=== PATIENT | female | born 1985 | race Caucasian/White ===

== ENCOUNTER 2018-03-07 07:56 | Day surgery (SDC) | payer SELFPAY ==
[2018-03-07 08:46] LABS: Absolute Lymphocytes (CBC) 2.3 K/uL (0.7-4.9); Absolute Monocytes 0.4 K/uL (0.1-1.3); Absolute Neutrophil 4.3 K/uL (1.8-8.0); Basophils % 0.6 % (0-1.3); Eosinophils % 2.2 % (0-4.4); Hematocrit 40.1 % (36.0-45.0); MCH 29.8 pg (27.0-35.0); MCV 86.8 fL (80-100); MPV 7.5 fL (7.6-11.3); Monocytes % 5.1 % (3.3-12.3); RBC Red Blood Cell Count 4.62 M/uL (3.86-4.86)
[2018-03-07 08:53] LABS: Urine Blood 3+ (NEG); Urine Glucose NEGATIVE (NEG); Urine Protein NEGATIVE (NEG); Urine pH 7.5 (5.0-7.0)
[2018-03-07 09:10] LABS: BUN Blood Urea Nitrogen 11 mg/dL (7-18); Bicarbonate 28 mmol/L (21-32); Glucose Level 94 mg/dL (74-106); HCG, Quantitative 2290 mIU/mL (1-3); Potassium 3.6 mmol/L (3.5-5.1); Sodium Level 137 mmol/L (136-145)
--- NOTE | 2018-03-07 10:22 | ER ---
Nurse's Notes [facility] Name: Nicole London Age: 32 yrs Sex: Female : 1985 Arrival Date: 03/07/2018 Time: 07:58 Bed 5 Private MD: Joanie Montano Diagnosis: Incomplete spontaneous without complication Presentation: 03/07 08:02 Presenting complaint: Patient states: I have been spotting since Tuesday and last night la1 and today I have passed some large clots. Transition of care: patient was not received from another setting of care. Onset of symptoms was March 07, 2018. Risk Assessment: Do you want to hurt yourself or someone else? Patient reports no desire to harm self or others. Initial Sepsis Screen: Does the patient meet any 2 criteria? No. Patient's initial sepsis screen is negative. Does the patient have a suspected source of infection? No. Patient's initial sepsis screen is negative. Care prior to arrival: None. 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 - Social history:: Smoking status: Patient/guardian denies using tobacco. - Ebola Screening: : No symptoms or risks identified at this time. Screenin:33 Abuse screen: Denies threats or abuse. Denies injuries from another. Nutritional jl7 screening: No deficits noted. Tuberculosis screening: No symptoms or risk factors identified. Fall Risk IV access (20 points). Total Mohan Fall Scale indicates No Risk (0-24 pts). Assessment: 08:20 Obstetrical Assessment: General assessment: awake and alert, skin warm and dry, jl7 respirations even and unlabored. Pain: Denies pain. Neuro: Level of Consciousness is awake, alert, obeys commands. Cardiovascular: Patient's skin is warm and dry. Respiratory: Airway is patent Respiratory effort is even, unlabored, Respiratory pattern is regular, symmetrical. GI: No signs and/or symptoms were reported involving the gastrointestinal system. Patient currently denies diarrhea, nausea, vomiting. : Reports vaginal bleeding that is bright red, with clots, since Tuesday. EENT: No signs and/or symptoms were reported regarding the EENT system. Derm: Skin is pink, warm \T\ dry. Musculoskeletal: No signs and/or symptoms reported regarding the musculoskeletal system. 09:15 Reassessment: Patient and/or family updated on plan of care and expected duration. Pain jl7 level reassessed. Patient is alert, oriented x 3, equal unlabored respirations, skin warm/dry/pink. Had pt change in to gown for US. 10:15 Reassessment: Patient appears in no apparent distress at this time. Patient and/or jl7 family updated on plan of care and expected duration. Pain level reassessed. Patient is alert, oriented x 3, equal unlabored respirations, skin warm/dry/pink. 11:15 Reassessment: No changes from previously documented assessment. Patient and/or family jl7 updated on plan of care and expected duration. Pain level reassessed. Patient is alert, oriented x 3, equal unlabored respirations, skin warm/dry/pink. 12:00 Reassessment: Patient and/or family updated on plan of care and expected duration. Pain jl7 level reassessed. Patient is alert, oriented x 3, equal unlabored respirations, skin warm/dry/pink. Vital Signs: 08:03 BP 118 / 60; Pulse 77; Resp 16; Temp 98.6; Pulse Ox 98% on R/A; Weight 72.57 kg; Height la1 5 ft. 3 in. (160.02 cm); Pain 0/10; 09:00 BP 109 / 60; Pulse 75; Resp 16 S; Pulse Ox 98% on R/A; Pain 0/10; jl7 10:30 BP 110 / 62; Pulse 75; Resp 16 S; Pulse Ox 99% on R/A; Pain 0/10; jl7 12:15 BP 115 / 64; Pulse 74; Resp 16; Pulse Ox 100% on R/A; Pain 0/10; jl7 08:03 Body Mass Index 28.34 (72.57 kg, 160.02 cm) la1 ED Course: 07:58 Patient arrived in ED. mr 07:59 Joanie Montano MD is Private Physician. mr 08:02 Debi Prieto FNP-C is [facility]. kb 08:02 Alban Spangler MD is Attending Physician. kb 08:02 Triage completed. la1 08:04 Arm band placed on left wrist. la1 08:16 Manish Otero, RN is Primary Nurse. jl7 08:33 Patient has correct armband on for positive identification. Bed in low position. Call jl7 light in reach. Side rails up X 1. Pulse ox on. NIBP on. 08:33 No provider procedures requiring assistance completed. Inserted saline lock: 20 gauge jl7 in right antecubital area, using aseptic technique. Blood collected. 09:55 US Transvaginal Ob In Process Unspecified. EDMS 10:00 Assist provider with pelvic exam: Set up pelvic tray. Performed by Debi GAMBOA Patient tolerated well. 10:14 Ultrasound completed. Patient tolerated well. Patient moved back from ultrasound. lc3 10:22 Norma Orr MD is Hospitalizing Provider. kb 12:35 Patient admitted, IV remains in place. intact, No redness/swelling at site. jl7 Administered Medications: No medications were administered Point of Care Testing: Urine : 08:30 hCG Reading: Positive; Control Reading: Negative; jl7 Outcome: 10:22 Decision to Hospitalize by Provider. kb 12:35 Admitted to OR accompanied by nurse, family with patient, via stretcher, with chart. jl7 12:35 Condition: stable 12:35 Discharge instructions given to patient, Instructed on the need for admit, Demonstrated understanding of instructions. 12:36 Patient left the ED. jlBinh Signatures: Dispatcher [employer] EDMS Debi Prieto FNP-C FNP-Karma Aida HusainThomas, RN RN Ivet Salazar Jahala, RN RN marcelo
--- NOTE | 2018-03-07 10:23 | EDPHYS ---
Physician Documentation [facility] Name: Nicole London Age: 32 yrs Sex: Female : 1985 Arrival Date: 03/07/2018 Time: 07:58 Bed 5 Private MD: Joanie Montano ED Physician Alban Spangler HPI: 03/07 08:46 This 32 yrs old Female presents to ER via Ambulatory with complaints of kb Vaginal Bleeding, + Preg <12wks. 08:46 The patient presents to the emergency department with vaginal bleeding, described as kb spotting, with clots. The estimated gestational age is 11 weeks. course: care: private OB physician, Dr. Orr, Leakage of Fluid: none appreciated, Ultrasound: the patient had an ultrasound, which was normal. Previous pregnancies: in previous pregnancies patient has had. Associated signs and symptoms: Pertinent positives: vaginal bleeding. The patient has not experienced similar symptoms in the past. The patient has been recently seen by a physician:. Pt reports spotting since Tuesday and passing clot this morning. Was told that the spotting was normal by OB, but came in because of the clot she passed. Reports last US was 3 weeks ago and showed a "pocket of blood behind the placenta.". 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 - Social history:: Smoking status: Patient/guardian denies using tobacco. - Ebola Screening: : No symptoms or risks identified at this time. ROS: 08:46 Constitutional: Negative for fever, chills, and weight loss, Cardiovascular: Negative kb for chest pain, palpitations, and edema, Respiratory: Negative for shortness of breath, cough, wheezing, and pleuritic chest pain, Abdomen/GI: Negative for abdominal pain, nausea, vomiting, diarrhea, and constipation, MS/Extremity: Negative for injury and deformity, Skin: Negative for injury, rash, and discoloration, Neuro: Negative for headache, weakness, numbness, tingling, and seizure. 08:46 : Positive for vaginal bleeding. Exam: 08:46 Constitutional: This is a well developed, well nourished patient who is awake, alert, kb and in no acute distress. Head/Face: Normocephalic, atraumatic. Chest/axilla: Normal chest wall appearance and motion. Nontender with no deformity. No lesions are appreciated. Cardiovascular: Regular rate and rhythm with a normal S1 and S2. No gallops, murmurs, or rubs. Normal PMI, no JVD. No pulse deficits. Respiratory: Lungs have equal breath sounds bilaterally, clear to auscultation and percussion. No rales, rhonchi or wheezes noted. No increased work of breathing, no retractions or nasal flaring. Abdomen/GI: Soft, non-tender, with normal bowel sounds. No distension or tympany. No guarding or rebound. No evidence of tenderness throughout. Skin: Warm, dry with normal turgor. Normal color with no rashes, no lesions, and no evidence of cellulitis. MS/ Extremity: Pulses equal, no cyanosis. Neurovascular intact. Full, normal range of motion. Neuro: Awake and alert, GCS 15, oriented to person, place, time, and situation. Cranial nerves II-XII grossly intact. Motor strength 5/5 in all extremities. Sensory grossly intact. Cerebellar exam normal. Normal gait. 10:06 : Pelvic Exam: External exam: is normal, Speculum exam: mild bleeding, no cervicitis, kb os that is closed, no tissue in cervix is seen, no tissue in vagina is seen. Vital Signs: 08:03 BP 118 / 60; Pulse 77; Resp 16; Temp 98.6; Pulse Ox 98% on R/A; Weight 72.57 kg; Height la1 5 ft. 3 in. (160.02 cm); Pain 0/10; 09:00 BP 109 / 60; Pulse 75; Resp 16 S; Pulse Ox 98% on R/A; Pain 0/10; jl7 10:30 BP 110 / 62; Pulse 75; Resp 16 S; Pulse Ox 99% on R/A; Pain 0/10; jl7 12:15 BP 115 / 64; Pulse 74; Resp 16; Pulse Ox 100% on R/A; Pain 0/10; jl7 08:03 Body Mass Index 28.34 (72.57 kg, 160.02 cm) la1 MDM: 08:05 Patient medically screened. kb 08:54 Data reviewed: vital signs, nurses notes. Data interpreted: Pulse oximetry: on room air kb is 98 %. Interpretation: normal. 10:10 Physician consultation: Norma Orr MD was called at 10:11, Kirby will call back shortly.kb 10:21 Counseling: I had a detailed discussion with the patient and/or guardian regarding: the kb historical points, exam findings, and any diagnostic results supporting the discharge/admit diagnosis, lab results, radiology results, the need for further work-up and treatment in the hospital. Physician consultation: Norma Orr MD was contacted at 10:21, regarding patient's condition, and will see patient in ED, shortly, will take pt for D\\T\\C from ER. 03/07 08:05 Order name: Quantitative Hcg; Complete Time: 09:11 kb 03/07 08:05 Order name: Abo/rh Typing; Complete Time: 09:23 kb 03/07 08:05 Order name: Basic Metabolic Panel; Complete Time: 09:11 kb 03/07 08:05 Order name: CBC with Diff; Complete Time: 08:55 kb 03/07 08:37 Order name: Urine Dipstick--Ancillary (enter results); Complete Time: 08:55 bd 03/07 08:37 Order name: Urine --Ancillary (enter results); Complete Time: 08:55 bd 03/07 08:05 Order name: Urine Test (obtain specimen); Complete Time: 08:30 kb 03/07 08:05 Order name: IV Saline Lock; Complete Time: 08:30 kb 03/07 08:05 Order name: Labs collected and sent; Complete Time: 08:30 kb 03/07 08:05 Order name: NPO; Complete Time: 08:30 kb 03/07 08:05 Order name: Urine Dipstick-Ancillary (obtain specimen); Complete Time: 08:30 kb 03/07 09:12 Order name: US Transvaginal Ob; Complete Time: 10:25 kb 03/07 11:05 Order name: Type And Screen jl7 03/07 11:56 Order name: Type and Screen; Complete Time: 11:59 EDMS 03/07 09:57 Order name: Pelvic Exam Setup; Complete Time: 10:30 kb Administered Medications: No medications were administered Point of Care Testing: Urine : 08:30 hCG Reading: Positive; Control Reading: Negative; jl7 Disposition: 18:40 Co-signature as Attending Physician, Alban Spangler MD available for consultation at ps1 all times. Disposition: 03/07/18 10:22 Hospitalization ordered by Norma Orr for Observation. Preliminary diagnosis is Incomplete spontaneous without complication. - Bed requested for Operating Room. - Status is Observation. jl7 - Condition is Stable. - Problem is new. - Symptoms are unchanged. UTI on Admission? No Signatures: Dispatcher [employer] EDMS Debi Prieto, MANAGEMENT INTERN-C MANAGEMENT INTERN-CkThomas Johnson RN RN la1 Manish Otero RN RN jl7 Alban Spangler MD MD ps1 Corrections: (The following items were deleted from the chart) 12:36 10:22 Hospitalization Ordered by Norma Orr MD for Observation. Preliminary diagnosis jl7 is Incomplete spontaneous without complication. Bed requested for Operating Room. Status is Observation. Condition is Stable. Problem is new. Symptoms are unchanged. UTI on Admission? No. kb
--- NOTE | 2018-03-07 10:24 | RAD REPORT ---
EXAM DESCRIPTION: US - Transvaginal OB - 03/07/2018 9:55 am CLINICAL HISTORY: VAGINAL BLEEDING COMPARISON: OB Complete dated 09/07/2016 FINDINGS: A single gestational sac is seen within the uterus. The shape of the sac is within normal limits for gestational age. Within the sac is a single pole with crown-rump length of 2.9 cm, c orrelating to estimated gestational age of 9 weeks 5 days. Despite prolonged sonographic assessment, cardiac activity cannot be demonstrated. The placenta is not yet developed due to early gestational age. The maternal adnexa and ovaries are within normal limits. Normal Doppler blood flow was demonstrated to both ovaries. IMPRESSION: The findings are most compatible with demise.
[2018-03-07] MEDS ORDERED: FENTANYL CITR 100 MCG/2 ML ONE (12:59)
[2018-03-07] MEDS: Ringers Lactate 1,000 ML IV ONE ×2 (13:00→13:10)
[2018-03-07] MEDS ORDERED: PROPOFOL 200 MG/20 ML VIAL IV ONE (13:01)
[2018-03-07] MEDS ORDERED: LIDOCAINE 2% MPF 5 ML VIAL ONE (13:02)
[2018-03-07] MEDS ORDERED: MIDAZOLAM HCL 2 MG/2 ML INJ ONE (13:02)
[2018-03-07] MEDS ORDERED: ONDANSETRON HCL 40 MG/20 ML VIAL ONE (13:03)
[2018-03-07] MEDS ORDERED: METHYLERGONOVINE 0.2MG/ML AMP IM ONE (13:38)
[2018-03-07] MEDS ORDERED: KETOROLAC 30 MG/ML INJ IV PRN (13:40)
[2018-03-07] MEDS ORDERED: ONDANSETRON 4 MG (ODT) TAB PO PRN (13:40)
[2018-03-07] MEDS ORDERED: IBUPROFEN 400 MG TAB PO PRN (13:40)
[2018-03-07 13:54] VITALS: O2SAT 100
[2018-03-07 16:51] VITALS: BP 116/61; TEMP 98.9
--- NOTE | 2018-03-07 22:35 | P.OP ---
Sight Mounter: NONE,NONE Preoperative diagnosis: incomplete Postoperative diagnosis: same Primary procedure: Dilation and curettage with suction Secondary procedure: none Anesthesia: LMA Estimated blood loss: minimal Specimen: products of conception Operative Technique: After consents were signed, the patient was taken to the OR where general anesthesia was obtained without difficulty. The patient was placed in stirrups and prepped and draped in the normal sterile fashion in dorsal lithotomy position. A time-out was performed for patient safety. After the bladder was drained, a bivalve speculum was used to visualize the cervix. The cervix was then grasped at the anterior lip with a single-tooth tenaculum. The uterus was then gently sounded to 8 cm. The cervix was then gently and progressively dilated to #14 Hanks dilator. A #8 flexible suction curette was then inserted into the uterine cavity and attached to the suction tubing. The suction device was then activated and the curette turned to clear the uterus of products of conception. A sharp curettage of the uterine cavity was then performed until a gritty texture was felt on all the surfaces. The specimen was collected and sent to pathology. The instruments were then removed from the vagina, including the tenaculum. Ring forceps was briefly placed on the anterior lip to achieve hemostasis at the tenaculum site. The ring forceps was then removed along with the speculum. The patient tolerated the procedure well. Needle, lap, and instrument counts were correct x2. The patient was taken to the recovery room in good condition. Transferred to: Recovery Room Condition: Good
--- NOTE | 2018-03-08 00:18 | HP ---
Date of Admission: 03/07/2018 History Of Present Illness: Nicole is a 32-year-old, 4, para 2-0-1-2, at 11 weeks gestation, w ho presented to the Emergency Department with an incomplete . The patient has been bleeding, spotting intermittently for the last week, and today her bleeding became more significant. She pres ented to the Emergency Department. Upon evaluation by the Emergency Department, she had an ultrasoun d performed, and the ultrasound finding revealed intrauterine with no heart tones. T he patient previously had an ultrasound in the office which had heart tones present. The patient is also having some cramping pain. Denies shortness of breath, visual changes. -No other issues. Past Medical History: Recurrent urinary tract infections, anxiety, depression, and adult acne. Past Surgical History: Includes wisdom tooth extraction. Ob History: Includes 2 prior vaginal births and 1 miscarriage. Social History: No tobacco, alcohol, or drug use. She is with the father of her children. Crab Picker History: Normal. Physical Examination: Vital Signs: On admission, blood pressure of 115/64, pulse is 74, respirations 16, O2 sats 100%. General: The patient resting comfortably in bed. Head and Neck: Normocephalic, atraumatic. Neck is supple. Heart: Regular rate and rhythm. Respiratory: Symmetric nonlabored breathing. Abdomen: Soft, nontender, nondistended. Uterus is firm, approximately 11-week sized. Bilateral Lower Extremities: No clubbing, cyanosis, or edema. Laboratory Findings: White blood cell count 7.1, hemoglobin 13.7, hematocrit 40.1, platelet count 37 0. HCG levels 2290. Assessment: Nicole London is a 32-year-old, 4, para 2-0-1-2, at 11 weeks gestation with incomp lete . Plan: Plan is to perform a D and C and suction evacuation, routine postoperative care. ROSALIO Voice ID: [id number]
== END 2018-03-07 15:35 | disposition home or self-care (01) ==
LOC: ER 07:56 → ERHOLD 10:23 → UNDOADMOB 10:23 → OR 12:31
PROVIDERS: ATTEND Student in an Organized Health Care Education/Training Program
PROC: 10D17ZZ Extraction of Products of Conception, Retained, Via Natural or Artificial Opening (ICD-10-PCS; principal; 2018-03-07 11:45)
DX: O03.4 Incomplete spontaneous abortion without complication (principal)
CPT/HCPCS: 36415; 76817; 80048; 81003; 81025; 84702; 85025; 86850; 86900; 86901; 88305; 99285; J2210; J2250; J2405; J2704; J3010

== ENCOUNTER 2019-01-03 05:59 | Inpatient (IN) | payer SELFPAY ==
--- OUTSIDE RECORDS SUMMARY | 2019-01-03 06:02 | XMS REPORT ---
:1985 Author Organization [employer] Care Team Providers Name Role Phone Cirilo Orr Provider Role Unavailable Allergies No Known Allergies Problems Problem Type Condition Code Onset Dates Condition Status Problem Encounter for supervision of other Z34.82 Active normal in second trimester Problem Adult acne L70.9 Active Problem Seasonal allergies J30.2 Active Medications No Known Medications Results No Known Results Summary Purpose [employer] Submission
--- OUTSIDE RECORDS SUMMARY | 2019-01-03 06:02 | XMS REPORT ---
:1985 Author Organization [employer] Care Team Providers Name Role Phone Cirilo Orr Provider Role Unavailable Allergies No Known Allergies Problems Problem Type Condition Code Onset Dates Condition Status Problem Encounter for supervision of other Z34.82 Active normal in second trimester Problem Adult acne L70.9 Active Problem Seasonal allergies J30.2 Active Assessment Adult acne L70.9 Active Assessment Encounter for supervision of other Z34.82 Active normal in second trimester Medications Medication Code Code Instructions Start End Status Dosage System Date Date One Daily ND 55741993817 - Orally Active as directed Complete Zyrte Allergy ND 14387297343 10 MG Orally Active 1 tablet Once a day Results No Known Results Summary Purpose [employer] Submission
--- OUTSIDE RECORDS SUMMARY | 2019-01-03 06:02 | XMS REPORT ---
:1985 Author Organization [employer] Care Team Providers Name Role Phone Montano, Joanie Provider Role Unavailable Allergies No Known Allergies Problems Problem Type Condition Code Onset Dates Condition Status Problem Encounter for supervision of other Z34.82 Active normal in second trimester Problem Adult acne L70.9 Active Problem Seasonal allergies J30.2 Active Medications No Known Medications Results No Known Results Summary Purpose [employer] Submission
--- OUTSIDE RECORDS SUMMARY | 2019-01-03 06:03 | XMS REPORT ---
:1985 Author Organization [employer] Care Team Providers Name Role Phone Cirilo Orr Provider Role Unavailable Allergies No Known Allergies Problems Problem Type Condition Code Onset Dates Condition Status Problem Seasonal allergies J30.2 Active Problem Encounter for supervision of other Z34.82 Active normal in second trimester Problem Encounter for supervision of other Z34.83 Active normal in third trimester Problem Adult acne L70.9 Active Medications No Known Medications Results No Known Results Summary Purpose [employer] Submission
--- OUTSIDE RECORDS SUMMARY | 2019-01-03 06:03 | XMS REPORT ---
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 (GDM) in third trimester Problem Seasonal allergies J30.2 Active Problem Encounter for supervision of other Z34.82 Active normal in second trimester Problem Encounter for supervision of other Z34.83 Active normal in third trimester Problem Diet controlled gestational 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
--- OUTSIDE RECORDS SUMMARY | 2019-01-03 06:03 | XMS REPORT ---
[...] other Z34.83 Active normal in third trimester Assessment Encounter for supervision of other Z34.83 Active normal , third trimester Problem Adult acne L70.9 Active Medications No Known Medications Results No Known Results Summary Purpose [employer] Submission
--- OUTSIDE RECORDS SUMMARY | 2019-01-03 06:03 | XMS REPORT ---
:1985 Author Organization eClinicalWorks Care Team Providers Name Role Phone Montano, Joanie Provider Role Unavailable Allergies, Adverse Reactions, Alerts Substance Reaction Event Type Hydrocodone-Ibuprofen Info Not Available Drug Allergy Darvocet A500 Info Not Available Drug Allergy Benzyl Alcohol Info Not Available Drug Allergy benzyl peroxide Info Not Available Non Drug Allergy Problems Problem Type Condition Code Onset Dates Condition Status Assessment Seasonal allergies J30.2 Active Problem Encounter for supervision of other Z34.82 Active normal in second trimester Problem Adult acne L70.9 Active Problem Seasonal allergies J30.2 Active Assessment Dermatitis L30.9 Active Assessment Excoriated acne L70.5 Active Assessment Allergic reaction, initial T78.40XA Active encounter Medications Medication Code Code Instructions Start End Status Dosage System Date Date Zyrtec Allergy [facility] 01792468110 10 MG Orally Active 1 tablet Once a day One Daily [facility] 16224171806 - Orally Active as directed Complete Results Name Result Date Reference Range Unit Abnormality Flag Allergens w/Total IgE, Area 10 ----O106-DbA Pigweed, <0.10 19114599 Class 0 kU/L Common ----Y324-XqG Aspergillus <0.10 53640800 Class 0 kU/L fumigatus ----Q246-ZiY Rough <0.10 [id number] Class 0 kU/L Marshelder ----C329-WqH <0.10 32565930 Class 0 kU/L Cladosporium herbarum ----W764-UrU Sheep <0.10 04299186 Class 0 kU/L Cyril ----T550-XsX Nettle <0.10 [id number] Class 0 kU/L ----N576-AaI Mouse Urine <0.10 [id number] Class 0 kU/L ----C012-SvZ Kristopher, White <0.10 [id number] Class 0 kU/L ----M151-WcB D farinae <0.10 [id number] Class 0 kU/L ----A836-OxP Altmar <0.10 [id number] Class 0 kU/L ----Q447-UbB Cat Dander <0.10 [id number] Class 0 kU/L ----D472-SfO Elm, <0.10 [id number] Class 0 kU/L Bangladeshi ----Q001-MbH Dog Dander <0.10 [id number] Class 0 kU/L ----O608-PfO Gladwin, White <0.10 [id number] Class 0 kU/L ----G317-RpW Bermuda <0.10 [id number] Class 0 kU/L Grass ----S147-IoU Marion, <0.10 [id number] Class 0 kU/L Mountain ----N989-YhE Brent <0.10 41917840 Class 0 kU/L Grass ----G320-IdB Pecan, <0.10 [id number] Class 0 kU/L G[place]co ----J055-DeS Common <0.10 [id number] Class 0 kU/L Silver Birch ----G499-TmM Cockroach, <0.10 19409699 Class 0 kU/L Portuguese ----F947-LnK White <0.10 82779206 Class 0 kU/L [place]n ----G169-FgA Maple/Box <0.10 [id number] Class 0 kU/L Elder ----Immunoglobulin E, 16 20180719 6-495 IU/mL Total ----B324-KzS Penicillium <0.10 04542537 Class 0 kU/L chrysogen ----Q695-JrD Ragweed, <0.10 [id number] Class 0 kU/L Short ----C285-NyS D <0.10 54361460 Class 0 kU/L pteronyssinus ----H628-DtX Alternaria <0.10 [id number] Class 0 kU/L alternata Comp. Metabolic Panel (14) (CMP) ----A/G Ratio 1.6 20180719 1.2-2.2 ----Globulin, Total 2.7 20180719 1.5-4.5 g/dL ----Alkaline Phosphatase 80 20180719 39-117 IU/L ----Bilirubin, Total <0.2 53312144 0.0-1.2 mg/dL ----Chloride 97 20180719 96-106 mmol/L ----ALT (SGPT) 10 20180719 0-32 IU/L ----Potassium 4.5 52683482 3.5-5.2 mmol/L ----AST (SGOT) 11 20180719 0-40 IU/L ----Sodium 137 33848340 134-144 mmol/L ----BUN/Creatinine Ratio 20 03539936 9-23 ----eGFR If Africn Am 145 53840641 >59 mL/min/1.73 ----Calcium 10.2 97724373 8.7-10.2 mg/dL ----Carbon Dioxide, 23 20180719 20-29 mmol/L Total ----Albumin 4.3 53317877 3.5-5.5 g/dL ----Protein, Total 7.0 18519982 6.0-8.5 g/dL ----Glucose 84 84669453 65-99 mg/dL ----BUN 11 20180719 6-20 mg/dL ----Creatinine 0.55 73568621 0.57-1.00 mg/dL L ----eGFR If NonAfricn Am 125 05390166 >59 mL/min/1.73 CBC With Differential/Platelet ----MCHC 33.9 91626968 31.5-35.7 g/dL ----MCH 29.1 15881737 26.6-33.0 pg ----Platelets 373 24811566 150-379 x10E3/uL ----RDW 13.4 58095149 12.3-15.4 % ----Immature 0 44264227 Not Estab. % Granulocytes ----Immature Grans (Abs) 0.0 98709971 0.0-0.1 x10E3/uL ----Lymphs 25 97926530 Not Estab. % ----Monocytes 5 33744844 Not Estab. % ----Neutrophils 69 15518852 Not Estab. % ----Neutrophils 6.1 13526466 1.4-7.0 x10E3/uL (Absolute) ----Hematocrit 38.1 72544153 34.0-46.6 % ----Lymphs (Absolute) 2.2 20180719 0.7-3.1 x10E3/uL ----MCV 86 54973510 79-97 fL ----Eos 1 20180719 Not Estab. % ----RBC 4.44 98389837 3.77-5.28 x10E6/uL ----Basos 0 20180719 Not Estab. % ----Hemoglobin 12.9 20180719 11.1-15.9 g/dL ----Baso (Absolute) 0.0 77649907 0.0-0.2 x10E3/uL ----WBC 8.9 36622582 3.4-10.8 x10E3/uL ----Monocytes(Absolute) 0.5 53647661 0.1-0.9 x10E3/uL ----Eos (Absolute) 0.1 67126481 0.0-0.4 x10E3/uL Summary Purpose eClinicalWorks Submission
--- OUTSIDE RECORDS SUMMARY | 2019-01-03 06:03 | XMS REPORT ---
[...] Status Dosage System Date Date Zyrtec Allergy [facility] 57871473560 10 MG Orally Active 1 tablet Once a day One Daily [facility] 97288195031 - Orally Active as directed Complete Results No Known Results Summary Purpose eClinicalWorks Submission
--- OUTSIDE RECORDS SUMMARY | 2019-01-03 06:03 | XMS REPORT ---
:1985 Author Organization eClinicalWorks Care Team Providers Name Role Phone Cirilo Orr Provider Role Unavailable Allergies No Known Allergies Problems Problem Type Condition Code Onset Dates Condition Status Assessment Encounter for supervision of other Z34.83 Active normal in third trimester Problem Seasonal allergies J30.2 [...] Status Dosage System Date Date One Daily [facility] 58839551519 - Orally Active as directed Complete Zyrtec Allergy [facility] 61207143764 10 MG Orally Active 1 tablet Once a day Results No Known Results Summary Purpose eClinicalWorks Submission
--- OUTSIDE RECORDS SUMMARY | 2019-01-03 06:03 | XMS REPORT ---
:1985 Author Organization eClinicalWorks Care Team Providers Name Role Phone Cirilo Orr Provider Role Unavailable Allergies No Known Allergies Problems Problem Type Condition Code Onset Dates Condition Status Problem Encounter for supervision of other Z34.82 Active normal in second trimester Problem Adult acne L70.9 Active Problem Seasonal allergies J30.2 Active Assessment Encounter for supervision of other Z34.82 Active normal in second trimester Medications Medication Code Code Instructions Start End Status Dosage System Date Date One Daily [facility] 18319541092 - Orally Active as directed Complete Zyrtec Allergy [facility] 48972873391 10 MG Orally Active 1 tablet Once a day Results No Known Results Summary Purpose eClinicalWorks Submission
--- OUTSIDE RECORDS SUMMARY | 2019-01-03 06:03 | XMS REPORT ---
[...] Status Dosage System Date Date One Daily [facility] 68012470294 - Orally Active as directed Complete Zyrtec Allergy [facility] 48337384860 10 MG Orally Active 1 tablet Once a day Results No Known Results Summary Purpose eClinicalWorks Submission
[2019-01-03] MEDS ORDERED: Ringers Lactate 1,000 ML IV PRN (07:34)
[2019-01-03] MEDS ORDERED: Ringers Lactate 1,000 ML IV SCH (08:00)
[2019-01-03] MEDS ORDERED: PENICILLIN G POT 5 MU/100 ML VIAL IV ONE (08:00)
[2019-01-03] MEDS ORDERED: PROMETHAZINE 25 MG/ML VIAL IM PRN (08:05)
[2019-01-03] MEDS ORDERED: METHYLERGONOVINE 0.2MG/ML AMP IM PRN (08:05)
[2019-01-03] MEDS ORDERED: CARBOPROST TROME 250 MCG/ML IM PRN (08:05)
[2019-01-03] MEDS ORDERED: BUTORPHANOL 1 MG/ML INJ IV PRN (08:05)
[2019-01-03] MEDS ORDERED: FENTANYL/BUPIVACAINE/NS/PF 200 MCG/100 ML BAG EP PRN (08:11)
[2019-01-03] MEDS ORDERED: FENTANYL CITR 100 MCG/2 ML IV ONE (08:12)
[2019-01-03] MEDS ORDERED: BUPIVACAINE 0.25% PF 30 ML VIAL IV ONE (08:13)
[2019-01-03 08:38] LABS: Absolute Lymphocytes (CBC) 2.2 K/uL (0.7-4.9); Basophils % 0.3 % (0-1.3); Hematocrit 33.9 % (36.0-45.0); Lymphocytes % 20.1 % (15.3-44.8); MPV 8.2 fL (7.6-11.3)
[2019-01-03] MEDS ORDERED: OXYTOCIN/LR 20 UNIT/1,000 ML BAG IV SCH ×2 (09:00→13:00)
[2019-01-03] MEDS ORDERED: PENICILLIN 2.5 MU in NA CHLORIDE 0.9% 100 ML IV SCH (12:00)
--- NOTE | 2019-01-03 12:48 | PREOPHP ---
Date of Admission: 01/03/2019 This is a 33-year-old female, 5, para 2, 37 weeks 5 days. Rh positive. Immune to Rubella. Negative beta strep screen. Patient has numerous allergies. She has had no complications. This mor gildardo came in active labor. Went from 2-4 cm, within an hour or so of observation. She is quite comf ortable at this time. Probably will be requesting epidural. She has had 5 million units of penicill in because of the beta strep positive status. We will await another hour. Then examine her. If she has made no progress, start light Pitocin. Other factors such as family history is negative. She h as several allergies, which are listed on the front of the chart. Vital signs are all stable. She l ooks alert, basically healthy female in early labor. KYLEE/CHEIKH Voice ID: [id number]
[2019-01-03] MEDS ORDERED: ACETAMINOPHEN 500 MG TAB PO PRN (12:53)
[2019-01-03] MEDS ORDERED: DIPHENHYDRAMINE 25 MG TAB/CAP PO PRN (12:53)
[2019-01-03] MEDS ORDERED: DOCUSATE NA/SENNA CONC 1 TAB PO PRN (12:53)
[2019-01-03] MEDS ORDERED: BISACODYL 10 MG RECTAL SUPP RECT PRN (12:53)
[2019-01-03] MEDS ORDERED: Oxycodone HCl/Acetaminophen 1 TAB TAB PO PRN ×2 (12:53)
--- NOTE | 2019-01-03 13:11 | PN ---
Patient is now about 7 cm, 80% to 90% effaced, very soft, -1 station, rupture of membranes, clear flu id. FHTs normal, reactive. She has an epidural which is very comfortable only since pressure with c ontractions. We will start light Pitocin augmentation. She has had her first dose of penicillin sev eral hours ago. Next dose is coming soon. Anticipate once the contractions get little harder, it sh ould not be too long after that, that we get a delivery. KYLEE/CHEIKH Voice ID: [id number] Report ID: [id number]
[2019-01-03 15:25] VITALS: BMI 28.7
[2019-01-03] MEDS ORDERED: Ringers Lactate 3,000 ML IV ONE (16:52)
[2019-01-03 17:13] LABS: RPR (Rapid Plasma Reagin) NON-REACT (NON-REACT)
[2019-01-04] MEDS: IBUPROFEN 200 MG TAB PO PRN ×2 (02:33→12:00)
--- NOTE | 2019-01-04 09:15 | DS ---
Hospital Course: This is a 33-year-old female, patient of Dr. Orr, followed antepartum without com plications, came to our Labor and Delivery Unit in active labor, 37-weeks 5 days. Delivered uneventf ully a 6 pound 10 ounce male , Apgars 8 and 9. Epidural anesthesia. Small first degree lacera tion repaired with 2-0 chromic. Schultze delivery of the placenta, which was inspected and noted to be intact and normal. Less than 250 mL blood loss. Penicillin prophylaxis x2 doses. afe brile, ambulating, and voiding. Lochia is normal. She will be dismissed to call Dr. Orr's office and make an appointment for followup care. She knows to report any temperature elevation of 100 degr ees or greater, severe pain, heavy bleeding, or any other type of abnormalities. She has had no post epidural problems. She says she will get her Tdap outside the hospital since it would be too expens vanna here. She will take Motrin for analgesia. Initially gave her a prescription for tramadol, but christine quiroga will destroy that prescription. Final Diagnoses: Intrauterine gestation, 37 weeks 5 days, vaginal delivery, epidural anesthesia. Pe nicillin prophylaxis. KYLEE/CHEIKH Voice ID: [id number] Report ID: [id number]
--- NOTE | 2019-01-04 09:21 | OP ---
Surgeon: Barney Hansen MD This is a 33-year-old, 5, para 2, 37 weeks 5 days, followed antepartum without complications by Dr. Orr. Rh positive. Immune to Rubella. Positive beta strep screen. Came into our instit[facility] on early in active labor, 2 cm when first examined, within an hour or so was 4 cm. She was admitted, started on penicillin prophylaxis, received 2 doses during the labor. After achieving 5-6 cm, reque sted and received epidural anesthesia which gave excellent effect during the remainder of labor and d elivery. At 7 cm, rupture of membranes was performed and light Pitocin was started. Patient went ra pidly to complete. Second stage of 15 minutes or less. Spontaneous vaginal delivery of a 6-pound 10 -ounce male infant, Apgars 8 and 9. Small first-degree diagonal laceration repaired with 2-0 chromic . Schultze delivery of the placenta, which was inspected and noted to be intact and normal. Less th an 250 cc blood loss. Patient tolerated all procedures well. Final Diagnoses: Term intrauterine , 37 weeks 5 days, spontaneous labor, vaginal delivery, epidural anesthesia, penicillin prophylaxis. NBC/MODL Voice ID: [id number] Report ID: [id number]
[2019-01-04] MEDS ORDERED: Tdap (Diph,Pertuss(Acell),Tet Vac) 0.5 ML SYR IMVAC ONE (14:33)
[2019-01-04 15:36] VITALS: TEMP 98
[2019-01-04 15:47] VITALS: BP 112/64
[2019-01-05 20:30] LABS: HBsAG Nonreactive (Nonreactive)
== END 2019-01-04 15:15 | disposition home or self-care (01) | DRG 807 ==
LOC: L&D 05:59 → 2ND-WC 07:41
PROVIDERS: ADMIT Student in an Organized Health Care Education/Training Program; ATTEND Specialist
PROC: 10907ZC Drainage of Amniotic Fluid, Therapeutic from Products of Conception, Via Natural or Artificial Opening (ICD-10-PCS; principal; 2019-01-03)
PROC: 10E0XZZ Delivery of Products of Conception, External Approach (ICD-10-PCS; 2019-01-03)
PROC: 0HQ9XZZ Repair Perineum Skin, External Approach (ICD-10-PCS; 2019-01-03)
DX: O70.0 First degree perineal laceration during delivery (principal); Z37.0 Single live birth; O99.824 Streptococcus B carrier state complicating childbirth; Z3A.37 37 weeks gestation of pregnancy
CPT/HCPCS: 36415; 85025; 86592; 86901; 87340; J2210; J2590; J3010